=== PATIENT | female | born 1975 | race American Indian/Alaskan Native ===

== ENCOUNTER 2017-08-03 15:02 | Emergency (ER) | payer MEDICAID ==
[2017-08-03 16:07] LABS: Hematocrit 32.2 % (30.3-42.9); Hemoglobin 10.1 gm/dl (10.1-14.3); Mean Corpuscular HGB Conc 31 % (30-34); Mean Corpuscular Volume 77 fl (79-97); Platelet Count 273 K/mm3 (140-440); Red Blood Count 4.18 M/mm3 (3.65-5.03); White Blood Count 4.3 K/mm3 (4.5-11.0)
[2017-08-03 16:14] LABS: Mean Corpuscular Hemoglobin 24 pg (28-32)
[2017-08-03 16:20] LABS: Anion Gap 18 mmol/L; BUN/Creatinine Ratio 23; Blood Urea Nitrogen 14 mg/dL (7-17); Calcium 8.9 mg/dL (8.4-10.2); Carbon Dioxide 23 mmol/L (22-30); Chloride 101.4 mmol/L (98-107); Glucose 74 mg/dL (65-100); Potassium 3.6 mmol/L (3.6-5.0); Sodium 139 mmol/L (137-145)
[2017-08-03 16:30] LABS: Bilirubin,Urine MOD (Negative); Blood,Urine LG (Negative); Ketones,Urine TR mg/dL (Negative); Leukocyte Esterase,Urine NEG (Negative); Nitrite,Urine NEG (Negative); Urobilinogen,Urine < 2.0 mg/dL (<2.0)
[2017-08-03 16:32] LABS: WBC,Urine < 1.0 /HPF (0.0-6.0)
--- NOTE | 2017-08-03 19:28 | Ultrasound Report ---
FINAL REPORT PROCEDURE: US TRANSVAGINAL US TRANSVAGINAL and transabdominal TECHNIQUE: Real-time transabdominal sonography in multiple planes of the pelvis was performed. The pelvic structures, especially the ovaries were not optimally visualized. Transvaginal sonography was then performed to better evaluate the structures and/or abnormalities described below with image documentation. CPT 94035 and 76397 HISTORY: profuse vaginal bleeding with clots [id number] COMPARISON: No prior studies are available for comparison. FINDINGS: UTERUS Size: 14.0 x 5.7 x 6.4 cm. Endometrial thickness: The endometrium is ill-defined. However the measured thickness is 3 centimeters Orientation: Anteflexed and retroverted. Cervix: Normal. Fibroids/masses: There is a mural fibroid at the fundus which measures 3.4 x 3.2 x 3.5. RIGHT Ovary: 3.4 x 1.7 x 2.2 cm. Appearance: 1.3 centimeter cyst is present. LEFT Ovary: 4.2 x 3.5 x 3.1 cm. Appearance: 1.6 centimeter cyst is present. Pelvic fluid: None. Other: None. IMPRESSION: Thickened ill-defined endometrium is present. Recommend further evaluation of the endometrium. Hysterosonogram may be helpful. Uterine fibroid
--- NOTE | 2017-08-03 19:30 | Ultrasound Report ---
FINAL REPORT PROCEDURE: US PELVIC COMPLETE TECHNIQUE: TECHNIQUE: Real-time transabdominal sonography in multiple planes of the pelvis was performed. The pelvic structures, especially the ovaries were not optimally visualized. Transvaginal sonography was then performed to better evaluate the structures and/or abnormalities described below with image documentation. CPT 85294 and 04441 HISTORY: profuse vaginal bleeding with clots [id number] COMPARISON: No prior studies are available for comparison. FINDINGS: UTERUS Size: 14.0 x 5.7 x 6.4 cm. Endometrial thickness: The endometrium is ill-defined. However the measured thickness is 3 centimeters Orientation: Anteflexed and retroverted. Cervix: Normal. Fibroids/masses: There is a mural fibroid at the fundus which measures 3.4 x 3.2 x 3.5. RIGHT Ovary: 3.4 x 1.7 x 2.2 cm. Appearance: 1.3 centimeter cyst is present. LEFT Ovary: 4.2 x 3.5 x 3.1 cm. Appearance: 1.6 centimeter cyst is present. Pelvic fluid: None. Other: None. IMPRESSION: Thickened ill-defined endometrium is present. Recommend further evaluation of the endometrium. Hysterosonogram may be helpful. Uterine fibroid
[2017-08-04] MEDS ORDERED: TORADOL IM ONE (00:23)
--- NOTE | 2017-08-04 00:24 | Emergency Department Report ---
ED General Adult HPI - General Chief complaint: Vaginal Bleeding Stated complaint: VAGINAL BLEEDING Time Seen by Provider: 08/03/17 23:49 Source: patient Mode of arrival: Ambulatory Limitations: No Limitations - History of Present Illness Initial comments: Patient is a 41-year-old female no significant past medical history who presents with vaginal bleeding. Patient's vaginal bleeding has been going on since July 07. She states that she bleeds every day and she is passing blood clots through her vagina. Patient's vaginal bleeding is moderate she is also complaining of moderate pelvic pain. She denies having any nausea or vomiting any chest pain. Patient has not made any appointments with an SALES VENDOR or a primary care doctor. Severity scale (0 -10): 0 - Related Data Previous Rx's Medication Instructions Recorded Last Taken Type Naproxen 250 mg PO BID #20 tablet 08/04/17 Unknown Rx Allergies Allergy/AdvReac Type Severity Reaction Status Date / Time No Known Allergies Allergy Unverified 06/14/13 22:27 ED Review of Systems ROS: Stated complaint: VAGINAL BLEEDING Other details as noted in HPI Constitutional: denies: chills, fever Eyes: denies: eye pain, eye discharge, vision change ENT: denies: ear pain, throat pain Respiratory: denies: cough, shortness of breath, wheezing Cardiovascular: denies: chest pain, palpitations Endocrine: no symptoms reported Gastrointestinal: denies: abdominal pain, nausea, diarrhea Genitourinary: abnormal menses. denies: urgency, dysuria, discharge Musculoskeletal: denies: back pain, joint swelling, arthralgia Skin: denies: rash, lesions Neurological: denies: headache, weakness, paresthesias Psychiatric: denies: anxiety, depression Hematological/Lymphatic: denies: easy bleeding, easy bruising ED Past Medical Hx - Past Medical History Previous Medical History?: No Additional medical history: hemorroids - Surgical History Additional Surgical History: c section - Social History Smoking Status: Current Every Day Smoker Substance Use Type: Alcohol - Medications Home Medications: Home Medications Medication Instructions Recorded Confirmed Last Taken Type Naproxen 250 mg PO BID #20 tablet 08/04/17 Unknown Rx ED Physical Exam - General Limitations: No Limitations General appearance: alert, in no apparent distress - Head Head exam: Present: atraumatic, normocephalic - Eye Eye exam: Present: normal appearance - ENT ENT exam: Present: mucous membranes moist - Neck Neck exam: Present: normal inspection - Respiratory Respiratory exam: Present: normal lung sounds bilaterally. Absent: respiratory distress - Cardiovascular Cardiovascular Exam: Present: regular rate, normal rhythm. Absent: systolic murmur, diastolic murmur, rubs, gallop - GI/Abdominal GI/Abdominal exam: Present: soft, normal bowel sounds - Extremities Exam Extremities exam: Present: normal inspection - Back Exam Back exam: Present: normal inspection - Neurological Exam Neurological exam: Present: alert, oriented X3 - Psychiatric Psychiatric exam: Present: normal affect, normal mood - Skin Skin exam: Present: warm, dry, intact, normal color. Absent: rash ED Course Vital Signs 08/03/17 08/03/17 08/04/17 15:13 23:46 00:44 Temperature 97.2 F L 98 F Pulse Rate 83 86 Respiratory 18 18 18 Rate Blood Pressure 147/101 Blood Pressure 135/88 [Left] O2 Sat by Pulse 100 96 Oximetry ED Medical Decision Making - Lab Data Result diagrams: 08/03/17 15:22 08/03/17 15:22 Lab Results 08/03/17 08/03/17 08/03/17 Range/Units 15:22 15:22 15:22 WBC 4.3 L (4.5-11.0) K/mm3 RBC 4.18 (3.65-5.03) M/mm3 Hgb 10.1 (10.1-14.3) gm/dl Hct 32.2 (30.3-42.9) % MCV 77 L (79-97) fl MCH 24 L (28-32) pg MCHC 31 (30-34) % RDW 18.0 H (13.2-15.2) % Plt Count 273 (140-440) K/mm3 Sodium 139 (137-145) mmol/L Potassium 3.6 (3.6-5.0) mmol/L Chloride 101.4 (98-107) mmol/L Carbon Dioxide 23 (22-30) mmol/L Anion Gap 18 mmol/L BUN 14 (7-17) mg/dL Creatinine 0.6 L (0.7-1.2) mg/dL Estimated GFR > 60 ml/min BUN/Creatinine Ratio 23 % Glucose 74 (65-100) mg/dL Calcium 8.9 (8.4-10.2) mg/dL HCG, Quant < 2 (0-4) mIU/mL Urine Color (Yellow) Urine Turbidity (Clear) Urine pH (5.0-7.0) Ur Specific [place] (1.003-1.030) Urine Protein (Negative) mg/dL Urine Glucose (UA) (Negative) mg/dL Urine Ketones (Negative) mg/dL Urine Blood (Negative) Urine Nitrite (Negative) Urine Bilirubin (Negative) Urine Ictotest (Negative) Urine Urobilinogen (<2.0) mg/dL Ur Leukocyte Esterase (Negative) Urine WBC (Auto) (0.0-6.0) /HPF Urine RBC (Auto) (0.0-6.0) /HPF 08/03/17 Range/Units 15:52 WBC (4.5-11.0) K/mm3 RBC (3.65-5.03) M/mm3 Hgb (10.1-14.3) gm/dl Hct (30.3-42.9) % MCV (79-97) fl MCH (28-32) pg MCHC (30-34) % RDW (13.2-15.2) % Plt Count (140-440) K/mm3 Sodium (137-145) mmol/L Potassium (3.6-5.0) mmol/L Chloride (98-107) mmol/L Carbon Dioxide (22-30) mmol/L Anion Gap mmol/L BUN (7-17) mg/dL Creatinine (0.7-1.2) mg/dL Estimated GFR ml/min BUN/Creatinine Ratio % Glucose (65-100) mg/dL Calcium (8.4-10.2) mg/dL HCG, Quant (0-4) mIU/mL Urine Color [place] (Yellow) Urine Turbidity Clear (Clear) Urine pH 6.0 (5.0-7.0) Ur Specific [place] 1.024 (1.003-1.030) Urine Protein 100 mg/dl (Negative) mg/dL Urine Glucose (UA) 50 (Negative) mg/dL Urine Ketones Tr (Negative) mg/dL Urine Blood Lg (Negative) Urine Nitrite Neg (Negative) Urine Bilirubin Mod (Negative) Urine Ictotest Positive (Negative) Urine Urobilinogen < 2.0 (<2.0) mg/dL Ur Leukocyte Esterase Neg (Negative) Urine WBC (Auto) < 1.0 (0.0-6.0) /HPF Urine RBC (Auto) 6.0 (0.0-6.0) /HPF - Radiology Data Radiology results: report reviewed, image reviewed Transvaginal ultrasound: Shows a uterine fibroid and ill-defined endometrium. - Medical Decision Making Chief medical diagnosis: Dysfunctional uterine bleeding Differential medical diagnosis: Anemia, UTI CBC, CMP, UA, transvaginal ultrasound, test, IM Toradol Patient has uterine fibroid she is not anemic. I will give the patient IM Toradol and send patient home with naproxen. Patient states that she is upset that she couldn't get any "real pain medication " discussed with patient that uterine pain is gland then mediated and naproxen as well as for the pain and that patient needs to follow up with an SALES VENDOR. Discussed patient opiates would not be beneficial for her vaginal pain. Gave patient discharge instructions and follow-up for SALES VENDOR for dysfunctional uterine bleeding. Critical care attestation.: If time is entered above; I have spent that time in minutes in the direct care of this critically ill patient, excluding procedure time. ED Disposition Clinical Impression: Vaginal bleeding Uterine fibroid Qualifiers: Uterine leiomyoma location: unspecified location Qualified Code(s): D25.9 - Leiomyoma of uterus, unspecified Disposition: DC-01 TO HOME OR SELFCARE Is pt being admited?: No Does the pt Need Aspirin: No Condition: Stable Instructions: Dysfunctional Uterine Bleeding (ED), Uterine Fibroids (ED) Prescriptions: Naproxen 250 mg PO BID #20 tablet Referrals: DUSTIN VILLANUEVA MD [Staff Physician] - 3-5 Days
[2017-08-04 02:05] VITALS: BP 152/88
== END 2017-08-04 02:06 | disposition home or self-care (01) ==
LOC: ED 15:02
DX: D25.9 Leiomyoma of uterus, unspecified (principal); N93.9 Abnormal uterine and vaginal bleeding, unspecified; F17.200 Nicotine dependence, unspecified, uncomplicated
CPT/HCPCS: 36415; 76830; 76856; 80048; 81001; 84702; 85027; 96372; 99284; J1885

== ENCOUNTER 2017-09-16 21:24 | Emergency (ER) | payer MEDICAID ==
[2017-09-17] MEDS ORDERED: CLEOCIN ONE (00:03)
--- NOTE | 2017-09-17 00:43 | Emergency Department Report ---
Abscess Boil HPI - HPI Chief Complaint: Extremity Injury, Lower Stated Complaint: INSECT BITE Time Seen by Provider: 09/16/17 23:35 Duration: 3 Days Location: Lower Extremity (right leg) Severity: Severe (8 out of 10 rebollar sore. Patient states that she has been putting heat on site but not draining.) History: Yes Pain (right leg), Yes Insect Bite (patient states that she has been bitten by a spider in her sleep because she says she sees spider around the house.), No Fever, No Purulent Drainage, No Numbness, No Foreign Body, No Previous History HPI: Patient came to the emergency room with complaint of right leg pain with 2 bumps. She said they are red and swollen. She believes that she has been bitten by spiders that she sign or house. Tetanus vaccine is not up-to-date. Denies any fever chills or rigor. Denies any nausea or vomiting. Denies any numbness or tingling to extremities. Denies any calf pain or tenderness. Pain is localized to affected areas. Pain worsens with touch and walk-in bed or resting. Patient has been using heat to apply to affected site. Home Medications: Previous Rx's Medication Instructions Recorded Last Taken Type Naproxen 250 mg PO BID #20 tablet 08/04/17 Unknown Rx Ibuprofen [Motrin] 600 mg PO Q8H PRN 5 Days #15 tablet 09/17/17 Unknown Rx Sulfamethoxazole/Trimethoprim 1 each PO BID 10 Days #20 tablet 09/17/17 Unknown Rx [Bactrim DS TAB] Allergies/Adverse Reactions: Allergies Allergy/AdvReac Type Severity Reaction Status Date / Time No Known Allergies Allergy Unverified 06/14/13 22:27 ED Review of Systems ROS: Stated complaint: INSECT BITE Other details as noted in HPI Comment: All other systems reviewed and negative Constitutional: no symptoms reported Respiratory: no symptoms reported Cardiovascular: denies: chest pain, palpitations, dyspnea on exertion, orthopnea , edema, syncope, paroxysmal nocturnal dyspnea Gastrointestinal: denies: abdominal pain, nausea, vomiting, diarrhea, constipation, hematemesis, melena, hematochezia Genitourinary: denies: urgency, dysuria, frequency, hematuria, discharge Musculoskeletal: arthralgia. denies: back pain, joint swelling, myalgia Skin: rash, change in color, other (patient report bumps to the leg that looks infected) Neurological: denies: headache, weakness, numbness, paresthesias, confusion, abnormal gait, vertigo ED Past Medical Hx - Past Medical History Previous Medical History?: No Additional medical history: hemorroids - Surgical History Past Surgical History?: Yes Additional Surgical History: c section - Family History Family history: no significant - Social History Smoking Status: Never Smoker Substance Use Type: None - Medications Home Medications: Home Medications Medication Instructions Recorded Confirmed Last Taken Type Naproxen 250 mg PO BID #20 tablet 08/04/17 Unknown Rx Ibuprofen [Motrin] 600 mg PO Q8H PRN 5 Days #15 tablet 09/17/17 Unknown Rx Sulfamethoxazole/Trimethoprim 1 each PO BID 10 Days #20 tablet 09/17/17 Unknown Rx [Bactrim DS TAB] ED Abscess Boil Physical Exam - Exam General: Vital signs noted. No distress. Alert and acting appropriately. This is a 41-year-old female well-nourished well-developed in no acute distress Front/Back of Body, Lg (Color): 1 - 0.25 cm erythema indurated nonfluctuant area to right mid anterior leg. Small entrance wound to Center. Surrounded cellulitis noted 2 - 0.25 cm indurated nonfluctuant area to distal anterior leg. Circular, tender to palpate. Surrounding cellulitis with entrance to Center of wound. Exam: Yes Tenderness (2 areas to right leg erythema and indurated. Tender to palpate no drainage.), Yes Surrounding Cellulites/Erythema (localized to 2 areas 0.25 cm right leg), Yes Normal Neurologic Exam, Yes Normal Circulation, No Fluctuance (no fluctuance.), No Lymphangitis, No Crepitation, No Heart Murmur Exam: Mouth: Moist, no pharyngeal erythema or exudate, tongue is normal, uvula is midline and oral airways patent. Neck: Supple, normal range of motion.no adenopathy. no cspine tenderness. CV: S1, S2. Regular rate rhythm. Negative murmur. Lungs:Clear to auscultate bilaterally no rhonchi wheezes or rales. EXT No clubbing, cyanosis or edema. +2 pulses all extremities. No neurovascular compromise. Full range of motion to all extremities. No restrictions. +5 strength all extremities. Patient ambulates without any difficulties. Psych: Normal mood and behavior I & D Note - I & D Note I & D Note: Patient with 2 x 0.25 centimeter indurated, nonfluctuant area to right leg. Areas unable to be drained. Induration is minimal and areas nonfluctuant. ED Course Vital Signs 09/16/17 21:55 Temperature 98.3 F Pulse Rate 79 Respiratory 17 Rate Blood Pressure 169/109 O2 Sat by Pulse 99 Oximetry Vital Signs 09/16/17 09/17/17 09/17/17 21:55 00:56 01:56 Temperature 98.3 F Pulse Rate 79 80 Respiratory 17 18 18 Rate Blood Pressure 169/109 Blood Pressure 138/92 [Left] O2 Sat by Pulse 99 99 Oximetry - Reevaluation(s) Reevaluation #1: 09/17/17 02:00 Patient given Sidell 7.5/325 mg 1 tablet in the emergency room, booster 0.5 mL to update tetanus and Bactrim DS 1 tablet to start treatment for possible insect bite with cellulitis. Pain is better and her blood pressure is better. Critical care attestation.: If time is entered above; I have spent that time in minutes in the direct care of this critically ill patient, excluding procedure time. ED Medical Decision Making - Medical Decision Making ED course: Patient here reports that she is pretty sure that she was bitten by a spider probably near sleep and reports that over 3 day. She is to have been to areas on her right leg that looks infected and painful. Physical findings for localized 0.25 minimal indurated and nonfluctuant area to right lower leg. Minimal surrounding cellulitis with no calf tenderness and no leg edema. Neurovascular intact and patient ambulate without any difficulties. Patient appears to have insect bites that is infected. She was given Sidell 7.5/325 mg 1 tablet to manage pain, Bactrim DS was started to manage cellulitis and Motrin for pain. Patient educated on diagnosis and treatment plan and need to follow up with her primary care physician in 3-5 days for reevaluation. Patient also instructed to return to the emergency room if redness to the leg and cellulitic area spreads. Patient discharged home on Motrin, Bactrim DS ED Disposition Clinical Impression: Cellulitis of right leg, Arthralgia of right lower leg Insect bite of leg, right Qualifiers: Encounter type: initial encounter Qualified Code(s): S80.861A - Insect bite ( nonvenomous), right lower leg, initial encounter; W57.XXXA - Bitten or stung by nonvenomous insect and other nonvenomous arthropods, initial encounter; W57.XXXA - Bitten or stung by nonvenomous insect and other nonvenomous arthropods, initial encounter Disposition: - TO HOME OR SELFCARE Is pt being admited?: No Does the pt Need Aspirin: No Condition: Stable Instructions: Arthralgia (ED), Cellulitis (ED), Insect Bite or Sting (ED) Additional Instructions: Please keep affected areas clean and dry Take Bactrim DS antibiotic as prescribed Take Motrin as prescribed for pain If you notice increasing redness, swelling, fever and worsening pain please return to the emergency room otherwise follow-up with your primary care physician in 3-5 days. Increase her fluid intake Prescriptions: Ibuprofen [Motrin] 600 mg PO Q8H PRN 5 Days #15 tablet PRN Reason: Pain Sulfamethoxazole/Trimethoprim [Bactrim DS TAB] 1 each PO BID 10 Days #20 tablet Referrals: your, primary care physician [Other] - 3-5 Days Forms: Work/School Release Form(ED)
[2017-09-17] MEDS ORDERED: NORCO 7.5/325 PO ONE (00:44)
[2017-09-17] MEDS ORDERED: BOOSTRIX IM ONE (00:44)
[2017-09-17] MEDS ORDERED: BACTRIM DS PO ONE (00:44)
[2017-09-17 01:56] VITALS: BP 138/92
== END 2017-09-17 02:30 | disposition home or self-care (01) ==
LOC: ED 21:24
DX: S80.861A Insect bite (nonvenomous), right lower leg, initial encounter (principal); L03.115 Cellulitis of right lower limb; W57.XXXA Bitten or stung by nonvenomous insect and other nonvenomous arthropods, initial encounter; Y93.89 Activity, other specified; Y99.8 Other external cause status; Y92.009 Unspecified place in unspecified non-institutional (private) residence as the place of occurrence of the external cause
CPT/HCPCS: 90471; 90715

== ENCOUNTER 2018-03-15 22:45 | Emergency (ER) | payer MEDICAID ==
--- NOTE | 2018-03-16 00:22 | XRay Report ---
FINAL REPORT EXAM: XR FINGER(S) 2+V LT HISTORY: left thumb swelling and painful TECHNIQUE: Frontal view of the hand and 2 additional views of the left thumb PRIORS: None. FINDINGS: The bones are normally aligned and mineralized. The joint spaces are well-preserved. There is no evidence of acute fracture. The soft tissues are unremarkable. IMPRESSION: No evidence of acute fracture or subluxation.
--- NOTE | 2018-03-16 00:31 | Emergency Department Report ---
ED Upper Extremity Inj HPI - General Chief Complaint: Extremity Injury, Upper Stated Complaint: LT THUMB PAIN Time Seen by Provider: 03/16/18 00:08 Source: patient, family Mode of arrival: Ambulatory Limitations: No Limitations - History of Present Illness Initial Comments: This is a 42-year-old female nontoxic, well nourished in appearance, no acute signs of distress presents to the ED with c/o of left thumb pain 1 day. Patient stated that her finger was slammed by the freezer door. Patient denies any other trauma. Patient denies any numbness, tingling, fever, chills, nausea , vomiting, chest pain, shortness of breath, headache, stiff neck. Patient denies any joint swelling or joint redness. Patient denies decreased range of motion. Patient stated has decreased gait due to pain. Patient denies any allergies. PMH includes HTN. Patient stated is out of her HCTZ 12.5 mg daily. Patient wants a refill. MD Complaint: Injury to:: left, finger -: This evening Other Extremity Injury: Fingers: Left Other Injuries: none Place: outdoors Severity scale (0 -10): 8 Improves With: immobilization Worsens With: movement of extremity Context: direct blow Associated Symptoms: denies other symptoms. denies: weakness, numbness, neck pain, suspects foreign body, nausea/vomiting, heard/felt popping sensat - Related Data Previous Rx's Medication Instructions Recorded Last Taken Type Naproxen 250 mg PO BID #20 tablet 08/04/17 Unknown Rx Ibuprofen [Motrin] 600 mg PO Q8H PRN 5 Days #15 tablet 09/17/17 Unknown Rx Sulfamethoxazole/Trimethoprim 1 each PO BID 10 Days #20 tablet 09/17/17 Unknown Rx [Bactrim DS TAB] Hydrochlorothiazide [Hctz] 12.5 mg PO QDAY #30 capsule 03/16/18 Unknown Rx Ibuprofen [Motrin] 600 mg PO Q8H PRN #30 tablet 03/16/18 Unknown Rx Allergies Allergy/AdvReac Type Severity Reaction Status Date / Time No Known Allergies Allergy Unverified 06/14/13 22:27 ED Review of Systems ROS: Stated complaint: LT THUMB PAIN Other details as noted in HPI Constitutional: denies: chills, fever Eyes: denies: eye pain, eye discharge, vision change ENT: denies: ear pain, throat pain Respiratory: denies: cough, shortness of breath, wheezing Cardiovascular: denies: chest pain, palpitations Endocrine: no symptoms reported Gastrointestinal: denies: abdominal pain, nausea, diarrhea Genitourinary: denies: urgency, dysuria, discharge Musculoskeletal: denies: back pain, joint swelling, arthralgia Skin: denies: rash, lesions Neurological: denies: headache, weakness, paresthesias Psychiatric: denies: anxiety, depression Hematological/Lymphatic: denies: easy bleeding, easy bruising ED Past Medical Hx - Past Medical History Previous Medical History?: Yes Hx Hypertension: Yes Additional medical history: hemorroids - Surgical History Past Surgical History?: Yes Additional Surgical History: c section - Social History Smoking Status: Current Every Day Smoker Substance Use Type: None - Medications Home Medications: Home Medications Medication Instructions Recorded Confirmed Last Taken Type Naproxen 250 mg PO BID #20 tablet 08/04/17 Unknown Rx Ibuprofen [Motrin] 600 mg PO Q8H PRN 5 Days #15 tablet 09/17/17 Unknown Rx Sulfamethoxazole/Trimethoprim 1 each PO BID 10 Days #20 tablet 09/17/17 Unknown Rx [Bactrim DS TAB] Hydrochlorothiazide [Hctz] 12.5 mg PO QDAY #30 capsule 03/16/18 Unknown Rx Ibuprofen [Motrin] 600 mg PO Q8H PRN #30 tablet 03/16/18 Unknown Rx ED Physical Exam - General Limitations: No Limitations General appearance: alert, in no apparent distress - Head Head exam: Present: atraumatic, normocephalic - Eye Eye exam: Present: normal appearance - ENT ENT exam: Present: mucous membranes moist - Neck Neck exam: Present: normal inspection - Respiratory Respiratory exam: Present: normal lung sounds bilaterally. Absent: respiratory distress - Cardiovascular Cardiovascular Exam: Present: regular rate, normal rhythm. Absent: systolic murmur, diastolic murmur, rubs, gallop - GI/Abdominal GI/Abdominal exam: Present: soft, normal bowel sounds - Extremities Exam Extremities exam: Present: normal inspection, full ROM, tenderness, normal capillary refill. Absent: joint swelling - Expanded Upper Extremity Exam Left General: Present: normal inspection Shoulder Exam: Present: normal inspection, full ROM. Absent: tenderness, swelling Upper Arm exam: Present: normal inspection, full ROM. Absent: tenderness, swelling Elbow exam: Present: normal inspection, full ROM. Absent: tenderness, swelling Forearm Wrist exam: Present: normal inspection, full ROM. Absent: tenderness, swelling Hand Wrist exam: Present: normal inspection, full ROM, tenderness. Absent: swelling, abrasion, laceration, ecchymosis, deformity, crepidus, dislocation, erythema, amputation, nail avulsion, subungual hematoma Hand L/R Back: 1 - pain here Neuro motor exam: Present: wrist extension intact, thumb opposition intact, thumb IP flexion intact, thumb adduction intact, fingers 2-5 abduction intact Neurosensory exam: Present: 2-point discrimination, radial nerve intact, ulnar nerve intact, median nerve intact Vascular: Present: vascular compromise, normal capillary refill, radial pulse, brachial pulse, ulnar pulse - Back Exam Back exam: Present: normal inspection - Neurological Exam Neurological exam: Present: alert, oriented X3 - Psychiatric Psychiatric exam: Present: normal affect, normal mood - Skin Skin exam: Present: warm, dry, intact, normal color. Absent: rash ED Course Vital Signs 03/15/18 23:04 Temperature 97.5 F L Pulse Rate 76 Respiratory 18 Rate Blood Pressure 164/111 O2 Sat by Pulse 100 Oximetry - Reevaluation(s) Reevaluation #1: 03/16/18 00:31 Patient is speaking in full sentences with no signs of distress noted. ED Medical Decision Making - Medical Decision Making This is a 42-year-old female that presents with left thumb strain. Patient is stable and was examined by me. I referred patient to an orthopedic doctor for further evaluation for possible MRI. X-ray has been obtained and dictated by the radiologist. Patient is notified of the x-ray report with noted by the patient. Patient does have normal gait with no tenderness and no joint swelling. No ecchymosis. no joint redness or swelling. Not warm to touch. No signs of cellulites present. Patient received metal thumb splint for pain comfort. Post splint assessment: neurovasular intact; normal cap refill <2 second; normal sensation; denies decreaed sensation; normal ROM of digits. Patient was instructed to RICE therapy. Patient received Motrin and HCTZ for pain. B/P decreased prior to discharge. Patient is discharged with Motrin. At time of discharge, the patient does not seem toxic or ill in appearance. No acute signs of distress noted. Patient agrees to discharge treatment plan of care. No further questions noted by the patient. Critical care attestation.: If time is entered above; I have spent that time in minutes in the direct care of this critically ill patient, excluding procedure time. ED Disposition Clinical Impression: Strain of left thumb HTN (hypertension) Qualifiers: Hypertension type: unspecified Qualified Code(s): I10 - Essential (primary) hypertension Disposition: TO HOME OR SELFCARE Is pt being admited?: No Does the pt Need Aspirin: No Condition: Stable Instructions: Ibuprofen (By mouth), RICE Therapy (ED), Hypertension (ED) Additional Instructions: Follow-up with a orthopedic doctor in 3-5 days or if symptoms worsen and continue return to emergency room as soon as possible. Prescriptions: Hydrochlorothiazide [Hctz] 12.5 mg PO QDAY #30 capsule Ibuprofen [Motrin] 600 mg PO Q8H PRN #30 tablet PRN Reason: Pain Referrals: PRIMARY CAREMD [Primary Care Provider] - 3-5 Days KHANH STILES MD [Staff Physician] - 3-[address] [facility] [Outside] - 3-5 Days [facility] [Outside] - 3-5 Days Forms: Work/School Release Form(ED)
[2018-03-16] MEDS: HCTZ PO ONE (00:45)
[2018-03-16 01:08] VITALS: BP 146/107
== END 2018-03-16 01:05 | disposition home or self-care (01) ==
LOC: ED 22:45
DX: S56.012A Strain of flexor muscle, fascia and tendon of left thumb at forearm level, initial encounter (principal); W22.8XXA Striking against or struck by other objects, initial encounter; Y93.89 Activity, other specified; Y92.89 Other specified places as the place of occurrence of the external cause; Y99.8 Other external cause status

== ENCOUNTER 2019-05-16 19:41 | Emergency (ER) | payer MEDICAID, OTHER ==
--- NOTE | 2019-05-16 20:24 | Emergency Department Report ---
Blank Doc - Documentation Documentation: 44-year-old female that presents with abdominal pain and nausea. This initial assessment/diagnostic orders/clinical plan/treatment(s) is/are subject to change based on patient's health status, clinical progression and re- assessment by fellow clinical providers in the ED. Further treatment and workup at subsequent clinical providers discretion. Patient/guardians urged not to elope from the ED as their condition may be serious if not clinically assessed and managed. Initial orders include: 1- Patient sent to [facility] for further evaluation and treatment 2- labs 3- UA
[2019-05-16 20:27] VITALS: BP 127/94
[2019-05-16 21:20] LABS: Basophils # (Auto) 0.1 K/mm3 (0.0-0.1); Basophils % (Auto) 1.4 % (0.0-1.8); Eosinophils % (Auto) 0.7 % (0.0-4.3); Hematocrit 33.4 % (30.3-42.9); Hemoglobin 10.3 gm/dl (10.1-14.3); Lymphocytes # (Auto) 2.5 K/mm3 (1.2-5.4); Lymphocytes % (Auto) 51.2 % (13.4-35.0); Mean Corpuscular HGB Conc 31 % (30-34); Mean Corpuscular Volume 72 fl (79-97); Monocytes # (Auto) 0.5 K/mm3 (0.0-0.8); Monocytes % (Auto) 10.2 % (0.0-7.3); Platelet Count 372 K/mm3 (140-440); Red Blood Count 4.62 M/mm3 (3.65-5.03)
[2019-05-16 21:46] LABS: Alanine Aminotransferase 11 units/L (7-56); Albumin 4.1 g/dL (3.9-5); BUN/Creatinine Ratio 17; Blood Urea Nitrogen 17 mg/dL (7-17); Calcium 9.6 mg/dL (8.4-10.2); Hemolysis Index 0
[2019-05-16 21:53] LABS: Bilirubin,Urine NEG (Negative); Blood,Urine NEG (Negative); Calcium Oxalate Crystals,Urine 2+; Color,Urine Yellow (Yellow); Hyaline Casts,Urine 18 /LPF; Mucus,Urine 3+ /HPF; Urobilinogen,Urine < 2.0 mg/dL (<2.0)
[2019-05-16] MEDS ORDERED: NACL 0.9% 1000 ML 1,000 ML IV ONE (23:17)
[2019-05-16] MEDS ORDERED: MORPHINE IV ONE (23:17)
[2019-05-16] MEDS ORDERED: ZOFRAN IV ONE (23:17)
--- NOTE | 2019-05-16 23:17 | Emergency Department Report ---
ED Abdominal Pain HPI - General Chief Complaint: Abdominal Pain Stated Complaint: ABDOMINAL PAIN Time Seen by Provider: 05/16/19 20:23 Source: patient Mode of arrival: Ambulatory Limitations: No Limitations - History of Present Illness Initial Comments: 43-year-old -[place] female presents to the emergency room for abdominal pain 3 days of nausea. Patient reports she's been having chest pain that shot for 3 days. She reports that her abdominal pain is crampy located in the lower abdominal. Nothing makes it worse nothing makes it better denies any fever chills no vomiting or diarrhea. Patient's last menstrual period was 04/07/2019. Patient's concerned she is . Patient took [id number] pain medications as she reports did not help much. Patient has a past medical history of hypertension. MD Complaint: abdominal pain Onset/Timin -: days(s) Location: diffuse Severity scale (0 -10): 10 Quality: cramping Consistency: constant Improves With: nothing Worsens With: nothing Associated Symptoms: nausea. denies: vomiting, diarrhea, fever, chills, constipation, dysuria, hematemesis, hematochezia - Related Data LMP Date: 04/07/19 Previous Rx's Medication Instructions Recorded Last Taken Type Naproxen 250 mg PO BID #20 tablet 08/04/17 Unknown Rx Ibuprofen [Motrin] 600 mg PO Q8H PRN 5 Days #15 tablet 09/17/17 Unknown Rx Sulfamethoxazole/Trimethoprim 1 each PO BID 10 Days #20 tablet 09/17/17 Unknown Rx [Bactrim DS TAB] Ibuprofen [Motrin] 600 mg PO Q8H PRN #30 tablet 03/16/18 Unknown Rx hydroCHLOROthiazide [Hctz] 12.5 mg PO QDAY #30 capsule 03/16/18 Unknown Rx Allergies Allergy/AdvReac Type Severity Reaction Status Date / Time No Known Allergies Allergy Unverified 06/14/13 22:27 ED Review of Systems ROS: Stated complaint: ABDOMINAL PAIN Other details as noted in HPI Comment: All other systems reviewed and negative ED Past Medical Hx - Past Medical History Previous Medical History?: Yes Hx Hypertension: Yes Additional medical history: hemorroids - Surgical History Past Surgical History?: Yes Additional Surgical History: c section - Social History Smoking Status: Never Smoker Substance Use Type: None - Medications Home Medications: Home Medications Medication Instructions Recorded Confirmed Last Taken Type Naproxen 250 mg PO BID #20 tablet 08/04/17 Unknown Rx Ibuprofen [Motrin] 600 mg PO Q8H PRN 5 Days #15 tablet 09/17/17 Unknown Rx Sulfamethoxazole/Trimethoprim 1 each PO BID 10 Days #20 tablet 09/17/17 Unknown Rx [Bactrim DS TAB] Ibuprofen [Motrin] 600 mg PO Q8H PRN #30 tablet 03/16/18 Unknown Rx hydroCHLOROthiazide [Hctz] 12.5 mg PO QDAY #30 capsule 03/16/18 Unknown Rx ED Physical Exam - General Limitations: No Limitations General appearance: alert, in no apparent distress - Head Head exam: Present: atraumatic, normocephalic - Eye Eye exam: Present: normal appearance - ENT ENT exam: Present: mucous membranes moist - Neck Neck exam: Present: normal inspection - Respiratory Respiratory exam: Present: normal lung sounds bilaterally. Absent: respiratory distress - Cardiovascular Cardiovascular Exam: Present: regular rate, normal rhythm. Absent: systolic murmur, diastolic murmur, rubs, gallop - GI/Abdominal GI/Abdominal exam: Present: soft, tenderness. Absent: distended - Neurological Exam Neurological exam: Present: alert, oriented X3 - Psychiatric Psychiatric exam: Present: normal affect, normal mood - Skin Skin exam: Present: warm, dry, intact, normal color. Absent: rash ED Course Vital Signs 05/16/19 20:23 Temperature 98.4 F Pulse Rate 97 H Respiratory 16 Rate Blood Pressure 127/94 O2 Sat by Pulse 100 Oximetry ED Medical Decision Making - Lab Data Result diagrams: 05/16/19 20:40 05/16/19 20:40 Laboratory Tests 05/16/19 05/16/19 05/16/19 20:40 20:40 20:40 WBC 4.8 RBC 4.62 Hgb 10.3 Hct 33.4 MCV 72 L MCH 22 L MCHC 31 RDW 21.0 H Plt Count 372 Lymph % (Auto) 51.2 H Ector % (Auto) 10.2 H Eos % (Auto) 0.7 Baso % (Auto) 1.4 Lymph # 2.5 Ector # 0.5 Eos # 0.0 Baso # 0.1 Seg Neutrophils % 36.5 L Seg Neutrophils # 1.8 Sodium 140 Potassium 3.2 L Chloride 102.7 Carbon Dioxide 21 L Anion Gap 20 BUN 17 Creatinine 1.0 Estimated GFR > 60 BUN/Creatinine Ratio 17 Glucose 142 H Calcium 9.6 Total Bilirubin 0.20 AST 16 ALT 11 Alkaline Phosphatase 70 Total Protein 7.3 Albumin 4.1 Albumin/Globulin Ratio 1.3 Lipase 50 HCG, Qual Negative Urine Color Urine Turbidity Urine pH Ur Specific [place] Urine Protein Urine Glucose (UA) Urine Ketones Urine Blood Urine Nitrite Urine Bilirubin Urine Urobilinogen Ur Leukocyte Esterase Urine WBC (Auto) Urine RBC (Auto) U Epithel Cells (Auto) Calcium Oxalate Crystal Hyaline Casts Urine Mucus 05/16/19 21:20 WBC RBC Hgb Hct MCV MCH MCHC RDW Plt Count Lymph % (Auto) [place] % (Auto) Eos % (Auto) Baso % (Auto) Lymph # [place] # Eos # Baso # Seg Neutrophils % Seg Neutrophils # Sodium Potassium Chloride Carbon Dioxide Anion Gap BUN Creatinine Estimated GFR BUN/Creatinine Ratio Glucose Calcium Total Bilirubin AST ALT Alkaline Phosphatase Total Protein Albumin Albumin/Globulin Ratio Lipase HCG, Qual Urine Color Yellow Urine Turbidity Cloudy Urine pH 5.0 Ur Specific [place] 1.026 Urine Protein 30 mg/dl Urine Glucose (UA) Neg Urine Ketones Neg Urine Blood Neg Urine Nitrite Neg Urine Bilirubin Neg Urine Urobilinogen < 2.0 Ur Leukocyte Esterase Tr Urine WBC (Auto) 10.0 H Urine RBC (Auto) 4.0 U Epithel Cells (Auto) 13.0 Calcium Oxalate Crystal 2+ Hyaline Casts 18 Urine Mucus 3+ - Medical Decision Making 43-year-old -[place] female presents to the emergency room for abdominal pain 3 days of nausea. Patient reports she's been having chest pain that shot for 3 days. She reports that her abdominal pain is crampy located in the lower abdominal. Nothing makes it worse nothing makes it better denies any fever chills no vomiting or diarrhea. Patient's last menstrual period was 04/07/2019. Patient's concerned she is . Patient took [id number] pain medications as she reports did not help much. Patient has a past medical history of hypertension. CT was ordered with contrast patient sized to a low leave AGAINST MEDICAL ADVICE Critical care attestation.: If time is entered above; I have spent that time in minutes in the direct care of this critically ill patient, excluding procedure time. ED Disposition Clinical Impression: Pain in the abdomen Disposition: [id number]-07 LEFT AGAINST MED ADVICE Is pt being admited?: No Does the pt Need Aspirin: No Condition: Undetermined Instructions: Abdominal Pain (ED) Referrals: PRIMARY CARE,MD [Primary Care Provider] - 3-5 Days Forms: AMA Form, Accompanied Note, Work/School Release Form(ED)
== END 2019-05-16 23:38 | disposition left against medical advice (07) ==
LOC: ED 19:41
DX: R10.84 Generalized abdominal pain (principal); R11.0 Nausea; I10 Essential (primary) hypertension; Z98.890 Other specified postprocedural states; Z79.899 Other long term (current) drug therapy
CPT/HCPCS: 36415; 80053; 81001; 83690; 84703; 85025; 87086; J2270; J2405; J7030

== ENCOUNTER 2019-10-24 20:21 | Emergency (ER) | payer SELFPAY ==
--- NOTE | 2019-10-24 21:12 | Emergency Department Report ---
Blank Doc - Documentation Documentation: 43-year-old female that presents with headache and uncontrolled HTN. This initial assessment/diagnostic orders/clinical plan/treatment(s) is/are subject to change based on patient's health status, clinical progression and re- assessment by fellow clinical providers in the ED. Further treatment and workup at subsequent clinical providers discretion. Patient/guardians urged not to elope from the ED as their condition may be serious if not clinically assessed and managed. Initial orders include: 1- Patient sent to [facility] for further evaluation and treatment 2- CT head
[2019-10-24 22:03] VITALS: BP 118/96
--- NOTE | 2019-10-24 22:51 | Cat Scan Report ---
CT HEAD WITHOUT CONTRAST HISTORY: headache COMPARISON: None TECHNIQUE: CT imaging of the head was performed in the axial, sagittal, and coronal projections and bone algori thm in axial projection in the soft tissue algorithm. All CT scans at this location are performed using CT dose reduction for ALARA by means of automated e xposure control. CONTRAST: None. FINDINGS: Cerebral and Cerebellar Hemispheres: No evidence of mass or mass effect. No midline shift. No acute hemorrhage. No acute cortical infarction. No extra-axial fluid collection. Ventricles: Normal in size and configuration for age. Osseous Structures: No significant abnormality. Visualized Paranasal Sinuses: Extensive inflammatory changes involving the nasal passage and left max illary sinus Additional Findings: None IMPRESSION: 1. No acute intracranial abnormality. NOTE: Acute infarct may not be visible by noncontrast CT. Signer Name: Maximo Acosta MD Signed: 10/24/2019 10:46 PM Workstation Name: [id number]
== END 2019-10-25 02:53 | disposition left against medical advice (07) ==
LOC: ED 20:21
DX: I10 Essential (primary) hypertension (principal); Z53.21 Procedure and treatment not carried out due to patient leaving prior to being seen by health care provider
CPT/HCPCS: 70450

== ENCOUNTER 2021-12-04 23:18 | Emergency (ER) | payer SELFPAY ==
[2021-12-04 23:38] VITALS: BP 169/100
--- NOTE | 2021-12-04 23:39 | Emergency Department Report ---
ED General Adult HPI - General Chief complaint: Psych Stated complaint: PSYCH EVALUATION PUI?: No Time Seen by Provider: 12/04/21 23:36 Source: patient, EMS (Verbal report received from emergency medical services. EMS documentation not available at time of chart dictation ), RN notes reviewed, old records reviewed Mode of arrival: Stretcher Limitations: No Limitations - History of Present Illness Initial comments: The patient is a 46-year-old female. She presents to the ER today with request for psychiatric evaluation. She reports that she is feeling depressed, I would like to detox from tobacco As per verbal report from EMS, she called 911 because she is seeking a mental health evaluation. The patient denies acute physical pain, and she is not homicidal or suicidal, she denies hallucinations, access to guns or firearms, intentional overdose, and the possibility of . She occasionally consumes tobacco. She occasionally consumes alcohol. -: Gradual Associated Symptoms: denies other symptoms - Related Data Previous Rx's Medication Instructions Recorded Last Taken Type Naproxen 250 mg PO BID #20 tablet 08/04/17 Unknown Rx Ibuprofen [Motrin] 600 mg PO Q8H PRN 5 Days #15 tablet 09/17/17 Unknown Rx Sulfamethoxazole/Trimethoprim 1 each PO BID 10 Days #20 tablet 09/17/17 Unknown Rx [Bactrim DS TAB] Ibuprofen [Motrin] 600 mg PO Q8H PRN #30 tablet 03/16/18 Unknown Rx hydroCHLOROthiazide [Hctz] 12.5 mg PO QDAY #30 capsule 03/16/18 Unknown Rx Amlodipine Besylate [Norvasc] 2.5 mg PO QDAY #30 tab 12/04/21 Unknown Rx Nicotine Polacrilex [Nicotine Gum] 4 mg BC PRN #1 pack 12/04/21 Unknown Rx Allergies Allergy/AdvReac Type Severity Reaction Status Date / Time No Known Allergies Allergy Unverified 06/14/13 22:27 ED Review of Systems ROS: Stated complaint: PSYCH EVALUATION Other details as noted in HPI Constitutional: see HPI Eyes: as per HPI ENT: as per HPI Respiratory: see HPI Cardiovascular: as per HPI Endocrine: see HPI Gastrointestinal: as per HPI Genitourinary: as per HPI, dysuria Skin: as per HPI Neurological: as per HPI Psychiatric: as per HPI, depression. denies: homicidal thoughts, suicidal thoughts ED Past Medical Hx - Past Medical History Hx Hypertension: Yes Additional medical history: hemorroids - Surgical History Additional Surgical History: c section - Social History Smoking Status: Current Some Day Smoker Substance Use Type: None - Medications Home Medications: Home Medications Medication Instructions Recorded Confirmed Last Taken Type Naproxen 250 mg PO BID #20 tablet 08/04/17 Unknown Rx Ibuprofen [Motrin] 600 mg PO Q8H PRN 5 Days #15 tablet 09/17/17 Unknown Rx Sulfamethoxazole/Trimethoprim 1 each PO BID 10 Days #20 tablet 09/17/17 Unknown Rx [Bactrim DS TAB] Ibuprofen [Motrin] 600 mg PO Q8H PRN #30 tablet 03/16/18 Unknown Rx hydroCHLOROthiazide [Hctz] 12.5 mg PO QDAY #30 capsule 03/16/18 Unknown Rx Amlodipine Besylate [Norvasc] 2.5 mg PO QDAY #30 tab 12/04/21 Unknown Rx Nicotine Polacrilex [Nicotine Gum] 4 mg BC PRN #1 pack 12/04/21 Unknown Rx ED Physical Exam - General Limitations: No Limitations General appearance: alert, in no apparent distress - Head Head exam: Present: atraumatic, normocephalic - Eye Eye exam: Present: normal appearance, EOMI. Absent: nystagmus - ENT ENT exam: Present: normal exam, normal orophraynx, mucous membranes moist, normal external ear exam - Neck Neck exam: Present: normal inspection, full ROM. Absent: tenderness, meningismus - Respiratory Respiratory exam: Present: normal lung sounds bilaterally. Absent: respiratory distress, wheezes, rales, rhonchi, stridor, decreased breath sounds - Cardiovascular Cardiovascular Exam: Present: regular rate, normal rhythm, normal heart sounds. Absent: bradycardia, tachycardia, irregular rhythm, systolic murmur, diastolic murmur, rubs, gallop - GI/Abdominal GI/Abdominal exam: Present: soft. Absent: distended, tenderness, guarding, rebound, rigid, pulsatile mass - Extremities Exam Extremities exam: Present: normal inspection, full ROM, other (2+ pulses noted in the bilateral upper and lower extremities. There is no palpable cord. negative Homans sign. Muscular compartments are soft. The pelvis is stable.). Absent: pedal edema, calf tenderness - Back Exam Back exam: Present: normal inspection, full ROM. Absent: tenderness, CVA tenderness (R), CVA tenderness (L), paraspinal tenderness, vertebral tenderness - Neurological Exam Neurological exam: Present: alert, oriented X3, normal gait, other (There is no facial droop. The tongue is midline. EOMI. 5 out of 5 strength in 4 extremities). Absent: motor sensory deficit - Psychiatric Psychiatric exam: Present: normal affect, normal mood. Absent: homicidal ideation, suicidal ideation - Skin Skin exam: Present: warm, dry, intact, normal color. Absent: rash ED Course Vital Signs 12/04/21 23:31 Temperature 98 F Pulse Rate 100 H Respiratory 18 Rate Blood Pressure 169/100 O2 Sat by Pulse 100 Oximetry ED Medical Decision Making - Lab Data Vital Signs 12/04/21 23:31 Temperature 98 F Pulse Rate 100 H Respiratory 18 Rate Blood Pressure 169/100 O2 Sat by Pulse 100 Oximetry - Medical Decision Making Differential diagnosis, including but not limited to: Encounter for medical screening examination, encounter for behavioral health screening examination, chronic hypertension Assessment and plan: 46-year-old female, who was afebrile, with reassuring vital signs, resolved tachycardia, chronic hypertension, not acutely decompensated (please reference the [employer] clinical policy on asymptomatic hypertension) presenting to the ER today with a request for mental health evaluation. She is clinically sober, with a GCS of 15, and has no acute medical complaints. She does not meet criteria for 1013 hold or involuntary confinement. Advised patient that we will be happy to provide her with outpatient resources for psychiatric follow-up. She is given a list of outpatient psychiatric resources. She may be started on Norvasc for her chronic hypertension, and given nicotine gum for chronic nicotine dependence. Critical care attestation.: If time is entered above; I have spent that time in minutes in the direct care of this critically ill patient, excluding procedure time. ED Disposition Clinical Impression: Encounter for medical screening examination, Encounter for behavioral health screening, Elevated blood pressure reading Disposition: HOME / SELF CARE / HOMELESS Is pt being admited?: No Does the pt Need Aspirin: No Condition: Good Additional Instructions: Patient may follow-up with outpatient mental health resources that have been provided to the patient. Alternatively, patient may present themselves to [facility], or [place], or the local outpatient psychiatric facilities at her convenience. Recommend the patient follow-up with a primary care doctor within the next month. Recommend that patient discontinue consumption of tobacco, smoke products and alcohol. Patient is found to have elevated blood pressure today. Recommend aggressive we ight loss, physical activity as tolerated, exercise, patient may start new or worse medication as needed for elevated blood pressure. Patient may take the prescribed nicotine gum as needed for tobacco cessation Please return to the emergency room right away with new pain, worsened pain, migration of pain, projectile vomiting, change in mental status, confusion, inability tolerate liquid feeds, new, worsened or different symptoms not present on the initial emergency room evaluation Prescriptions: Nicotine Polacrilex [Nicotine Gum] 4 mg BC PRN #1 pack Amlodipine Besylate [Norvasc] 2.5 mg PO QDAY #30 tab Referrals: [facility] [Outside] - 3-5 Days [facility] [Outside] - 3-5 Days [facility] [Provider Group] - 3-5 Days
== END 2021-12-04 23:50 | disposition home or self-care (01) ==
LOC: ED 23:18
DX: Z13.30 Encounter for screening examination for mental health and behavioral disorders, unspecified (principal); I10 Essential (primary) hypertension; F17.200 Nicotine dependence, unspecified, uncomplicated
CPT/HCPCS: 99282